=== PATIENT | female | born 1960 | race Caucasian/White ===

== ENCOUNTER 2019-01-23 00:16 | Emergency (ER) | payer OTHER ==
[~2019-01-23] VITALS: Ht 152.4 cm; Wt 108.9 kg
[~2019-01-23 00:16] MED LIST: AMLO5TAB PO; DICL-388 PO; DIT5 PO; LOSA50TA57 PO
[2019-01-23 00:20] VITALS: BP 188/99
[2019-01-23] MEDS ORDERED: ASPIRIN 81 MG TAB.CHEW PO ONE (00:30)
--- NOTE | 2019-01-23 00:52 | NUR ---
PT MABULATORY TO ED BED 10
--- NOTE | 2019-01-23 01:00 | NUR ---
PT PRESENTS TO ED FOR EVALUATION OF CHEST PAIN X 1 HRS. STATED PRESURE LIKE PAIN, RADIATES TO LT SHOULDER AND FARM. PT AAO X4, GCS 15, ABLE TO SPEAK WITH FULL COMPLETE SENTENCES. RESPIATIONS EVEN AND UNLABORED, BL LUNG CLEAR. SKIN WARM/PINK/DRY, +PMSC. ABDOMEN LARGE, SOFT, NON DISTENDED, ACTIVE BOWEL SOUND X4. DIRECTOR OF FINANCIAL PLANNING SINUS BRONWYN CARDIAC AT LOW 50, SAKINA WNL. STATED CP 10/02. MADE AWARE OF PT STATUS. WILL CONTINUE TO MONITOR
[2019-01-23 01:03] LABS: BASOPHILS % (AUTO) 0.2 % (0.0-2.0); EOSINOPHILS # (AUTO) 0.1 K/uL (0-0.4); EOSINOPHILS % (AUTO) 1.7 % (0.0-4.0); HEMATOCRIT 44.7 % (36-48); HEMOGLOBIN 14.7 g/dL (12.0-16.0); LYMPHOCYTES # (AUTO) 1.5 K/uL (2.5-16.5); LYMPHOCYTES % (AUTO) 21.6 % (20.5-51.1); MEAN CORPUSCULAR HEMOGLOBIN 29 pg (27-31); MEAN CORPUSCULAR HGB CONC 33 g/dL (33-37); MEAN CORPUSCULAR VOLUME 88.2 fL (80-94); MONOCYTES # (AUTO) 0.4 K/uL (0.8-1.0); MONOCYTES % (AUTO) 6.5 % (1.7-9.3); NEUTROPHILS # (AUTO) 4.8 K/uL (1.8-7.7); PLATELET COUNT (AUTO) 246 K/uL (140-450); RED BLOOD CELL COUNT(AUTO) 5.07 MIL/uL (4.20-5.40); RED CELL DISTRIBUTION WIDTH 14.3 % (11.6-13.7); WHITE BLOOD COUNT (AUTO) 6.8 K/uL (4.8-10.8)
[2019-01-23 01:28] LABS: ALBUMIN 3.7 g/dL (3.4-5.0); ANION GAP 14.3 (8-16); CREATININE 1.2 mg/dL (0.6-1.3); POTASSIUM 4.3 mmol/L (3.5-5.1); TOTAL BILIRUBIN 0.6 mg/dL (0.0-1.0)
[2019-01-23] MEDS ORDERED: IBUPROFEN 600 MG TAB PO ONE (01:35)
[2019-01-23] MEDS ORDERED: ACETAMINOPHEN EXTRA STRENGTH 500 MG TAB PO ONE (01:50)
[2019-01-23 02:17] LABS: APPEARANCE,URINE CLEAR (CLEAR); BILIRUBIN,URINE NEGATIVE (NEGATIVE); BLOOD, URINE NEGATIVE (NEGATIVE); COLOR,URINE YELLOW (YELLOW); LEUKOCYTE ESTERASE ,URINE NEGATIVE (NEGATIVE); NITRITE, URINE NEGATIVE (NEGATIVE); PH,URINE 6.5 (5.0-9.0); UGLUCOSE NEGATIVE (NEGATIVE)
[2019-01-23 02:50] VITALS: BP 133/73
--- NOTE | 2019-01-23 02:50 | NUR ---
Patient discharged with v/s stable. Written and verbal after care instructions given and explained. Patient verbalized understanding. Ambulatory with steady gait. All questions addressed prior to discharge. Advised to follow up with PMD.
== END 2019-01-23 02:50 | disposition home or self-care (01) ==
LOC: MED 00:16
DX: R07.89 Other chest pain (principal); R11.0 Nausea; I10 Essential (primary) hypertension; Z88.0 Allergy status to penicillin; Z88.1 Allergy status to other antibiotic agents; Z88.5 Allergy status to narcotic agent; Z88.6 Allergy status to analgesic agent; Z79.1 Long term (current) use of non-steroidal anti-inflammatories (NSAID); Z79.899 Other long term (current) drug therapy
CPT/HCPCS: 36415; 71045; 80053; 81003; 83880; 84484; 85025; 93005; 99284; Q0092